=== PATIENT | male | born 1975 | race Caucasian/White ===

== ENCOUNTER 2021-01-03 08:21 | Emergency (ER) | payer BC ==
[~2021-01-03] VITALS: Ht 190.5 cm; Wt 120.7 kg
[2021-01-03] MEDS ORDERED: LAMOTRIGINE100 MG PO (08:59)
[2021-01-03] MEDS ORDERED: ABILIFY20 MG PO (08:59)
[2021-01-03] MEDS ORDERED: AMBIEN10 MG PO (08:59)
[2021-01-03] MEDS ORDERED: CYMBALTA20 MG PO (08:59)
[2021-01-03] MEDS ORDERED: XANAX1 MG PO (08:59)
[2021-01-03] MEDS ORDERED: XANAX0.5 MG PO (08:59)
[2021-01-03] MEDS ORDERED: VYVANSE10 MG PO (08:59)
[2021-01-03] MEDS ORDERED: BUPROPION XL150 MG PO (08:59)
[2021-01-03] MEDS ORDERED: PREDNISONE 20 MG TAB PO ONE (09:15)
[2021-01-03] MEDS ORDERED: PREDNISONE50 MG PO (09:55)
[2021-01-03] MEDS ORDERED: TYLENOL # 31 EA PO (10:06)
== END 2021-01-03 10:19 | disposition home or self-care (01) ==
LOC: FSED 08:25
DX: M54.16 Radiculopathy, lumbar region (principal); F31.9 Bipolar disorder, unspecified; E66.9 Obesity, unspecified
CPT/HCPCS: 99283; J7512